=== PATIENT | female | born 1960 | race Caucasian/White ===

== ENCOUNTER 2018-09-10 12:07 | Emergency (ER) | payer OTHER ==
--- NOTE | 2018-09-10 12:57 | EDPHY ---
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 for the past few days, complaining of 3 days of intermittent right buttock and right thigh pain, paresthesia. No midline pain. Atraumatic. No fall. No fever or chills. No incontinence or retention. No saddle anesthesia REVIEW OF SYSTEMS: A ten point review of systems was performed and is negative with the exception of the items mentioned in the HPI PAST MEDICAL & SURGICAL HISTORY: Bilateral [id number] amputation secondary congenital tibial deformity SOCIAL HISTORY: nonsmoker. No drug use. Visiting from [place] PHYSICAL EXAM (Prior to examination, patient consented to physical exam, hands were washed and my usual and customary physical exam procedures followed) 1) GENERAL: Well-developed, well-nourished, alert and oriented. Appears to be in no acute distress. 2) HEAD: Normocephalic, atraumatic 3) HEENT: Pupils equal, round, reactive to light bilaterally. Sclera anicteric. Nasopharynx, oropharynx, clear, no lesions. 4) NECK: Full range of motion, no meningeal signs. 5) LUNGS: Clear auscultation bilaterally, no wheezes, no rhonchi, no retractions. 6) HEART: Regular rate and rhythm, no murmur, no heave, no gallop. 7) ABDOMEN: No guarding, no rebound, no focal tenderness, negative McBurney's, negative Horton's, negative Rovsing's, negative peritoneal sign, 8) MUSCULOSKELETAL: Moving all extremities, no focal areas of tenderness, no obvious trauma. No peripheral edema or discoloration. 9) BACK:. No CVA tenderness, no midline vertebral tenderness, no fluctuance, no step-off, no obvious trauma, no visual or palpable abnormality. No weakness with thigh flexion or extension . No pain with range of motion of the acetabulum. Bilateral amputation sites appear well with no signs of infection or irritation. 10) SKIN: No rash, no petechiae. 11) NEURO: Awake, alert, and oriented to person, place and time. Answers questions appropriately. There were no obvious focal neurologic abnormalities.. DIFFERENTIAL DIAGNOSIS: In no particular order, including but not limited to, fracture, sprain/strain, cauda equina, spinal infectious etiology. MEDICAL DECISION MAKING Lower index of suspicion for cauda equina, epidural abscess, epidural hematoma, lumbar myositis, diskitis, as the patient is neurologically intact in the lower extremities, has patella and Achilles reflexes intact and equal bilaterally, has no neurologic deficits, no incontinence, no retention, no midline pain, no fluctuance, afebrile, no flulike symptoms. Pain may be secondary to muscular strain, may be secondary to discogenic etiology. At this point I do not identify definitive indication for emergent MRI, however patient may necessitate this on an outpatient basis. Patient given acute back pain precautions. Patient notes prior history of similar symptoms, typically responds well to short course of Percocet and Medrol Dosepak which will be prescribed her. Usual and customary opiate and steroid precautions and instructions provided. Patient verbalizes understanding of discharge instructions. 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 Care of patient under supervision of primary supervising physician Dr Gibbons . - Personal History Current Tetanus/Diphtheria Vaccine: Unsure Current Tetanus Diphtheria and Acellular Pertussis (TDAP): Unsure - Medical/Surgical History Hx Asthma: No Hx Chronic Respiratory Disease: No Hx Diabetes: No Hx Cardiac Disease: No Hx Renal Disease: No Hx Cirrhosis: No Hx Alcoholism: Yes Hx HIV/AIDS: No Hx Splenectomy or Spleen Trauma: No Other PMH: hyperlipidemia, HTN, RAY BKA, tibia dysplasia, perforated bowel, diverticulosis - Social History Smoking Status: Never smoked Constitutional: Initial Vital Signs Temperature (C) 37.2 C 09/10/18 12:17 Heart Rate 101 H 09/10/18 12:17 Respiratory Rate 16 09/10/18 12:17 Blood Pressure 141/99 H 09/10/18 12:17 O2 Sat (%) 96 09/10/18 12:17 O2 Delivery Mode Room Air Allergies/Adverse Reactions: aspirin Allergy (Verified 09/10/18 12:16) Home Medications: Medication Instructions Recorded Lisinopril-Hctz 10-12.5 mg Tab 09/10/18 Lovastatin 09/10/18 Multivitamins 09/10/18 methylPREDNISolone [Medrol Dose 4 mg PO DAILY #1 ea 09/10/18 Messi] oxyCODONE/APAP 5/325 [Percocet 1 tab PO Q6 #15 tab 09/10/18 5/325] Departure - Departure Disposition: Home, Routine, Self-Care Clinical Impression: Lumbar radiculopathy, acute Condition: Good Instructions: Lumbar Radiculopathy (ED) Additional Instructions: Seek medical attention if you develop new or worsening pain, if you develop bladder or bowel dysfunction, numbness around your perineum, foot drop, or any other symptoms that concern you. Referrals: [facility] [Other] - 5-7 days, call for appt. Prescriptions: methylPREDNISolone [Medrol Dose Messi] 4 mg PO DAILY #1 ea oxyCODONE/APAP 5/325 [Percocet 5/325] 1 tab PO Q6 #15 tab
[2018-09-10] MEDS ORDERED: OXYCODONE/APAP 5/325 TAB PO ONE (13:14)
[2018-09-10 13:43] VITALS: BP 134/74
== END 2018-09-10 13:43 | disposition home or self-care (01) ==
DX: M54.16 Radiculopathy, lumbar region (principal); M79.651 Pain in right thigh; E78.5 Hyperlipidemia, unspecified; I10 Essential (primary) hypertension; Z96.653 Presence of artificial knee joint, bilateral